=== PATIENT | male | born 1940 | race Caucasian/White ===

== ENCOUNTER → 2021-08-13 | Outpatient (CLI) | payer MEDICARE ==
[~2021-08-13] MED LIST: CHLO25TA10 PO; GADOTERATE 5 MMOL/10ML VIAL. IVP ONE
--- NOTE | 2021-08-14 08:23 | KCIC ---
EXAMINATION: Magnetic resonance imaging (MRI) of the cervical spine with and without contrast 08/13/19 3:00 PM HISTORY: Radicular neck pain. TECHNIQUE: Multiplanar multi-weighted MRI of the cervical spine was performed with and without intrav enous contrast using the standard cervical spine protocol. Contrast information: Gadolinium-based contrast COMPARISON: None available. FINDINGS: There is 1 mm anterolisthesis of C3 on C4. There is mild disc height loss at C3-C4 and mild to modera te disc height loss at C4-C5. Moderate disc height loss at C6-C7 and mild disc height loss at C7-T1. Anterior cervical discectomy and fusion hardware is identified at C5-C6. This prosthesis is present w ith adjacent fluid. There is prevertebral edema measuring up to 1.5 cm in thickness in AP dimension. There is minimal associated rim enhancement. No definite marrow edema involving the endplates, althou gh there is minimal STIR signal abnormality involving superior endplate of C6, limited evaluation sec ondary to adjacent hardware. Cervical spinal cord signal intensity is normal in all sequences. 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 Craniocervical junction is normal. Vertebral artery flow voids are maintained. Atlantoaxial articulation is intact. C2-C3: The disk is normal in configuration. There is no facet arthropathy. There is no uncovertebral joint disease. There is no neuroforaminal stenosis. There is no spinal canal stenosis. C3-C4: There is a disc bulge asymmetric to the right. Moderate left and mild right facet arthropathy. Mild uncovertebral joint disease. Moderate bilateral neuroforaminal stenosis. Mild spinal canal sten osis without significant deformity of the cord or cord signal alteration. C4-C5: There is a circumferential disc bulge. Mild/moderate facet arthropathy. Mild uncovertebral jo nt disease. Moderate left and mild right neural foraminal stenosis. Mild spinal canal stenosis withou t deformity of the cord or cord signal alteration. C5-C6: This level is fused. There is mild facet arthropathy. Moderate uncovertebral joint disease. Mo derate severe bilateral neuroforaminal stenosis. Moderate spinal canal stenosis, exacerbated by ligam entum flavum infolding. This deforming the cord without definite cord signal alteration. C6-C7: There is a posterior disc osteophyte complex. Mild facet arthropathy. Mild to moderate uncover tebral joint disease. Moderate to severe bilateral neuroforaminal stenosis. Mild/moderate spinal camille l stenosis, exacerbated by ligamentum flavum infolding. Mild deformity of cord without cord signal ab normality. C7-T1: Mild disc bulge. Mild facet arthropathy. Mild bilateral neuroforaminal stenosis. IMPRESSION: Anterior cervical discectomy and fusion is identified at C5-C6. Fluid is identified within the disc s pace as well as edema and fluid along the prevertebral space most likely postoperative in etiology. E valuation for infection is limited by artifact associated with the hardware. No significant marrow ed ashly is identified although there may be subtle endplate edema along the superior endplate of C6 which could be postsurgical. Short-term follow-up could be of benefit. Correlate with any systemic signs o f infection to assess sterility of prevertebral fluid. 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 No cord signal alteration. Comparison with preoperativ e imaging could be of benefit. Mild degenerative changes of the cervical spine as described in detail above. Electronically signed by: Emelia Emery MD (08/14/2021 8:21 AM) [id number]
== END ==
LOC: KCIC MRI 14:39
PROVIDERS: ATTEND Specialist
DX: M48.03 Spinal stenosis, cervicothoracic region (principal); M48.8X3 Other specified spondylopathies, cervicothoracic region; M53.82 Other specified dorsopathies, cervical region; M50.21 Other cervical disc displacement, high cervical region; M43.8X2 Other specified deforming dorsopathies, cervical region; Z98.1 Arthrodesis status; M43.13 Spondylolisthesis, cervicothoracic region; M54.12 Radiculopathy, cervical region; M50.322 Other cervical disc degeneration at C5-C6 level
CPT/HCPCS: 72156; 82565; A9575